=== PATIENT | female | born 1970 | race Two or more races ===

== ENCOUNTER 2017-05-02 20:39 | Emergency (ER) | payer OTHER ==
[~2017-05-02] VITALS: Ht 157.5 cm; Wt 70.3 kg
[2017-05-02] MEDS ORDERED: ZOLOFT100 MG (20:45)
== END 2017-05-02 21:53 | disposition home or self-care (01) ==
LOC: ER 20:39
DX: R51 Headache (principal); F06.4 Anxiety disorder due to known physiological condition

== ENCOUNTER 2022-06-13 19:54 | Emergency (ER) | payer OTHER ==
[~2022-06-13] VITALS: Ht 157.5 cm; Wt 72.6 kg
[~2022-06-13 19:54] MED LIST: ZOLOFT100 MG
== END 2022-06-13 22:11 | disposition home or self-care (01) ==
LOC: ER 19:54 → EDBD 19:57 → ER 19:57
DX: F41.9 Anxiety disorder, unspecified (principal)

== ENCOUNTER 2024-12-02 08:46 | Emergency (ER) | payer OTHER ==
[~2024-12-02] VITALS: Ht 157.5 cm; Wt 72.6 kg
[2024-12-02] MEDS ORDERED: LIPITOR40 M1 PO (09:00)
[2024-12-02] MEDS ORDERED: METOPROLOL SUCC25 MG PO (09:00)
[2024-12-02] MEDS ORDERED: SYNTHROID50 MCG PO (09:00)
[2024-12-02] MEDS ORDERED: DEXAMETHASONE SODIUM PHOSP/PF 10 MG/ML VIAL IV ONE (09:30)
[2024-12-02] MEDS ORDERED: FAMOtidine 10 MG/ML (4ML VIAL) IV ONE (09:30)
[2024-12-02] MEDS ORDERED: DIPHENHYDRAMINE HCL 50 MG/ML VIAL 1ML IV ONE (09:30)
[2024-12-02] MEDS ORDERED: ZYRTEC10 M3 PO (09:40)
[2024-12-02] MEDS ORDERED: ATARAX25 MG PO (09:40)
[2024-12-02] MEDS ORDERED: PEPCID AC20 MG PO (09:40)
[2024-12-02] MEDS ORDERED: PREDNISONE20 M1 PO ×2 (09:40→10:23)
== END 2024-12-02 11:34 | disposition home or self-care (01) ==
LOC: ER 09:03
DX: T78.40XA Allergy, unspecified, initial encounter (principal); Z88.8 Allergy status to other drugs, medicaments and biological substances; I10 Essential (primary) hypertension; E78.49 Other hyperlipidemia; E03.8 Other specified hypothyroidism; R21 Rash and other nonspecific skin eruption
CPT/HCPCS: 96365; 99282; J1100; J1200; J3490